=== PATIENT | female | born 1990 | race Caucasian/White ===

== ENCOUNTER 2022-12-05 09:00 | Emergency (ER) | payer MEDICAID ==
[~2022-12-05] VITALS: Ht 160 cm; Wt 78.2 kg
[2022-12-05] MEDS ORDERED: CYCLOBENZAPRINE10 M1 PO (09:18)
[2022-12-05] MEDS ORDERED: DESYREL50 MG PO (09:19)
[2022-12-05] MEDS ORDERED: VALTREX1 GM PO (10:27)
[2022-12-05] MEDS ORDERED: XANAX0.5 M1 PO (10:27)
[2022-12-05 10:54] VITALS: BP 123/85
== END 2022-12-05 10:56 | disposition home or self-care (01) ==
LOC: ED 09:00
DX: B02.9 Zoster without complications (principal); F41.9 Anxiety disorder, unspecified; Z28.310 Unvaccinated for COVID-19

== ENCOUNTER 2023-12-05 13:23 | Emergency (ER) | payer MEDICAID ==
[~2023-12-05] VITALS: Ht 160 cm; Wt 85.6 kg
[~2023-12-05 13:23] MED LIST: CYCLOBENZAPRINE10 M1 PO; DESYREL50 MG PO; VALTREX1 GM PO; XANAX0.5 M1 PO
[2023-12-05 14:32] LABS: BASO # 0.01 K/mm3 (0.02-0.10); EOS # 0.18 K/mm3 (0.04-0.40); HEMATOCRIT 40.1 % (37.0-47.0); HEMOGLOBIN 13.4 g/dL (12.5-16.0); LYMPH# 2.16 K/mm3 (1.50-4.00); MEAN CELL VOLUME 94 fl (78-100); MEAN CORPUSCULAR HEMOGLOBIN 32 pg (27-31); MEAN CORPUSCULAR HGB CONC 33 g/dL (33-37); MEAN PLATELET VOLUME 9.6 fl (7.4-10.4); MONO # 0.55 K/mm3 (0.20-0.80); NEU # 6.21 K/mm3 (1.40-6.50); PLATELET COUNT 240 K/mm3 (130-400); RED BLOOD COUNT 4.25 M/mm3 (4.10-5.30); WHITE BLOOD COUNT 9.2 K/mm3 (4.8-10.8)
[2023-12-05 14:37] LABS: ALBUMIN 4.4 g/dL (3.5-5.0); SODIUM 139 mmol/L (136-145)
[2023-12-05 14:38] LABS: CALCIUM 9.8 mg/dL (8.3-10.5)
[2023-12-05 14:39] LABS: GLUCOSE 124 mg/dL (65-105)
[2023-12-05 14:40] LABS: TOTAL PROTEIN 7.6 g/dL (6.4-8.3)
[2023-12-05 14:41] LABS: CARBON DIOXIDE 21 mmol/L (22-29); TOTAL BILIRUBIN 0.4 mg/dL (0.2-1.2)
[2023-12-05 14:45] LABS: AST-SGOT 46 U/L (5-34)
[2023-12-05 14:46] LABS: ALT/SGPT 57 U/L (0-55)
[2023-12-05 14:47] LABS: LIPASE 34 U/L (8-78)
[2023-12-05 14:54] LABS: TROPONIN-I < 0.030 ng/mL (0.00-0.033)
[2023-12-05 16:50] VITALS: BP 126/85
== END 2023-12-05 17:29 | disposition home or self-care (01) ==
LOC: ED 13:23
PROVIDERS: Family Medicine
DX: R07.89 Other chest pain (principal); R74.01 Elevation of levels of liver transaminase levels
CPT/HCPCS: J7120